=== PATIENT | male | born 1965 | race Caucasian/White ===

== ENCOUNTER → 2017-01-13 | Outpatient (CLI) | payer OTHER | LOC: KOH-I 11:22 | DX: M54.2 Cervicalgia (principal); M54.5 Low back pain; G89.29 Other chronic pain; M25.60 Stiffness of unspecified joint, not elsewhere classified; M51.9 Unspecified thoracic, thoracolumbar and lumbosacral intervertebral disc disorder; M10.9 Gout, unspecified; J93.9 Pneumothorax, unspecified; M15.9 Polyosteoarthritis, unspecified; M48.07 Spinal stenosis, lumbosacral region; M48.56XA Collapsed vertebra, not elsewhere classified, lumbar region, initial encounter for fracture | CPT/HCPCS: 72050; 72070; 72110 ==

== ENCOUNTER 2021-07-31 14:58 | Emergency (ER) | payer OTHER | END 2021-07-31 15:40 | disposition left against medical advice (07) | LOC: ER1 14:58 | DX: Z53.21 Procedure and treatment not carried out due to patient leaving prior to being seen by health care provider (principal) ==